=== PATIENT | female | born 1980 | race Caucasian/White ===

== ENCOUNTER → 2023-09-06 09:52 | Outpatient (CLI) | payer BC, SELFPAY | PROVIDERS: Visit Provider Nurse Practitioner Family | DX: R30.0 Dysuria (principal) | CPT/HCPCS: 87086; 87186 ==

== ENCOUNTER → 2025-01-21 07:21 | Outpatient (CLI) | payer OTHER, SELFPAY | PROVIDERS: PCP Family Medicine; Referring Provider Nurse Practitioner Family; Visit Provider Nurse Practitioner Family | DX: N89.8 Other specified noninflammatory disorders of vagina (principal) | CPT/HCPCS: 87210 ==

== ENCOUNTER → 2025-01-29 13:31 | Outpatient (CLI) | payer OTHER, SELFPAY ==
--- NOTE | 2025-01-29 13:32 | DI.US.S_ITS ---
MM diagnostic mammo unilat LT, US breast LT limited: 01/29/2025 BI-RADS: 2 CLINICAL: 44-year old female for left diagnostic mammogram and left diagnostic breast ultrasound. Tyrer-Cuzick lifetime risk of 14.7%. No personal or first-degree family history of breast cancer. The patient reports a palpable abnormality (1 month) in the left breast. PRIOR EXAMS Outside priors 06/25/2024, 03/31/2023, and 01/30/2022. MAMMOGRAPHY TECHNIQUE: 2D and 3D (tomosynthesis) digital mammographic views obtained, with additional images as needed for full coverage. Current study was also evaluated with a Computer Aided Detection (CAD) system. ULTRASOUND TECHNIQUE Real-time yang scale and color doppler imaging of the area of clinical interest was performed with image documentation. TARGETED Left Breast Ultrasound: Real-time ultrasound exam was performed focused to area of clinical and/or imaging concern. DENSITY Left: D. The breasts are extremely dense, which lowers the sensitivity of mammography. TISSUE COMPOSITION Left: Lower Outer at 5:00, 2 cm from nipple: (b) Homogeneous-fibroglandular. MAMMOGRAPHY FINDINGS Left: A marker overlies the breast at the site of palpable abnormality. There is no underlying mammographic finding. ULTRASOUND FINDINGS Left: Lower Outer at 5:00, 7 cm from nipple, measuring 0.6 x 0.8 x 0.3 cm: There is a benign-appearing intramammary lymph node present. Left: Lower Outer at 5:00, 7 cm from nipple, measuring 0.5 x 0.7 x 0.3 cm: There is an oval, circumscribed cyst vs solid mass present. Doppler shows no vascularity. This has vaguely reniform morphology and appears similar to the adjacent structure also in the 5:00 radian. This is likely also an intramammary lymph node. Left: Lower Outer at 5:00, 2 cm from nipple: There is no sonographic correlate for the palpable abnormality. No suspicious sonographic finding present. IMPRESSION: Left * No evidence of malignancy with benign findings. RECOMMENDATIONS Bilateral * Annual screening mammography. COMMENTS: Findings and recommendations were conveyed to the patient during today's evaluation. OVERALL ASSESSMENT CATEGORY BI-RADS-2: Benign. [employer] recommends annual screening mammography beginning at age 40 for women with average risk of breast cancer. ELECTRONICALLY SIGNED: Gillian Garza M.D. on 01/30/2025 at 08:24:50 AM PT Interpreting Station ID: [id number]
== END ==
PROVIDERS: PCP Family Medicine; Referring Provider Family Medicine; Visit Provider Family Medicine
DX: N63.23 Unspecified lump in the left breast, lower outer quadrant (principal); R92.342 Mammographic extreme density, left breast
CPT/HCPCS: 76642; 77065; G0279

== ENCOUNTER → 2025-07-29 08:15 | Outpatient (CLI) | payer OTHER, SELFPAY | PROVIDERS: PCP Family Medicine; Visit Provider Nurse Practitioner Family | DX: R39.15 Urgency of urination (principal) | CPT/HCPCS: 87077; 87086; 87186 ==

== ENCOUNTER → 2025-07-31 14:08 | Outpatient (CLI) | payer OTHER, SELFPAY | PROVIDERS: PCP Family Medicine; Visit Provider Family Medicine | DX: R39.9 Unspecified symptoms and signs involving the genitourinary system (principal) | CPT/HCPCS: 87086 ==

== ENCOUNTER → 2025-08-31 16:37 | Outpatient (CLI) | payer OTHER, SELFPAY ==
--- NOTE | 2025-08-31 16:38 | DI.MG.S_ITS ---
MM screening mammo BI: 08/31/2025. BI-RADS: 1 CLINICAL: 44-year old female for bilateral screening mammogram. Tyrer-Cuzick lifetime risk of 14.7%. No personal or first-degree family history of breast cancer. PRIOR EXAMS Mammogram(s): 01/29/2025. Breast Ultrasound(s): 01/29/2025. MAMMOGRAPHY TECHNIQUE: 2D and 3D (tomosynthesis) digital mammographic views obtained, with additional images as needed for full coverage. Current study was also evaluated with a Computer Aided Detection (CAD) system. DENSITY D. The breasts are extremely dense, which lowers the sensitivity of mammography. MAMMOGRAPHY FINDINGS Bilateral: No suspicious mass, asymmetry, microcalcification, or other abnormality seen. No significant change from comparison. IMPRESSION: * No evidence of malignancy. RECOMMENDATIONS Bilateral * Annual screening mammography. OVERALL ASSESSMENT CATEGORY BI-RADS-1: Negative. The [employer] recommends annual screening mammography beginning at age 40 for women with average risk of breast cancer. ELECTRONICALLY SIGNED: Gillian Garza M.D. on 09/01/2025 at 01:20:27 PM PT Interpreting Station ID: [id number]
== END ==
LOC: MAMMO 16:38
PROVIDERS: PCP Family Medicine; Referring Provider Family Medicine; Visit Provider Family Medicine
DX: Z12.31 Encounter for screening mammogram for malignant neoplasm of breast (principal); R92.343 Mammographic extreme density, bilateral breasts
CPT/HCPCS: 77063; 77067